=== PATIENT | male | born 1995 | race Caucasian/White ===

== ENCOUNTER 2024-03-13 22:04 | Emergency (ER) | payer SELFPAY ==
[~2024-03-13] VITALS: Ht 177.8 cm; Wt 95.3 kg
[2024-03-13 22:18] VITALS: BP 153/102; PULSE 64; RESP 16; TEMP 97.5; O2SAT 98
[2024-03-13] MEDS ORDERED: ONDA-188 SL (22:48)
[2024-03-13] MEDS ORDERED: IBUP-2213 PO (22:48)
[2024-03-13] MEDS: KETOROLAC 30 MG/ML VIAL IM ONE (22:57)
[2024-03-13 22:58] VITALS: BP 153/102; PULSE 64; RESP 16; TEMP 97.5; O2SAT 98
[2024-03-13 23:03] LABS: FLU A ANTIGEN negative (NEGATIVE); FLU B ANTIGEN NEGATIVE (NEGATIVE)
== END 2024-03-13 22:58 | disposition home or self-care (01) ==
LOC: MED 22:04
DX: B34.9 Viral infection, unspecified (principal); Z79.1 Long term (current) use of non-steroidal anti-inflammatories (NSAID); Z20.822 Contact with and (suspected) exposure to COVID-19
CPT/HCPCS: 87426; 87804; 96372; 99283; J1885